=== PATIENT | male | born 1950 | race Caucasian/White ===

== ENCOUNTER 2023-01-30 05:06 | Emergency (ER) | payer MEDICARE ==
[2023-01-30] VITALS (9 sets, daily range): BP systolic 143–171; BP diastolic 66–88
[~2023-01-30] VITALS: Ht 165.1 cm; Wt 83.0 kg
[2023-01-30 05:37] LABS: BASO% 0.4 % (0-3); EOS% 4.9 % (0-8); HEMATOCRIT 39.5 % (39.0-50.0); HEMOGLOBIN 12.8 g/dl (14.0-18.0); IMMATURE GRANULOCYTES 0.3 % (0.0-5.0); LYMPH% 25.1 % (15-41); MEAN CELL VOLUME 92.1 fL CALC (80.0-100.0); MEAN CORPUSCULAR HGB 29.8 pG CALC (26.0-32.0); MEAN CORPUSCULAR HGB CONC 32.4 g/dL CAL (32.0-36.0); MONO% 9.7 % (2-13); NEUT# 4.03 thou/uL (1.82-7.42); NEUT% 59.6 % (42-76); RED BLOOD COUNT 4.29 mill/uL (4.70-6.10); RED CELL DISTRI WIDTH 12.7 % (11.5-15.5)
[2023-01-30] MEDS ORDERED: TOPROL XL25 MG PO (05:41)
[2023-01-30] MEDS ORDERED: AMOXICILLIN500 MG PO (05:41)
[2023-01-30] MEDS ORDERED: OMEPRAZOLE DR40 MG PO (05:42)
[2023-01-30] MEDS ORDERED: TOPIRAMATE25 MG PO (05:43)
[2023-01-30] MEDS ORDERED: CELEBREX200 MG PO (05:43)
[2023-01-30] MEDS ORDERED: ATORVASTATIN CA20 MG PO (05:44)
[2023-01-30] MEDS ORDERED: LISINOPRIL20 M1 PO (05:44)
[2023-01-30] MEDS ORDERED: ASPIRIN81 MG PO (05:45)
[2023-01-30] MEDS ORDERED: ZINC100 M1 PO (05:45)
[2023-01-30] MEDS ORDERED: VITAMIN D2 PO ×2 (05:47→05:48)
[2023-01-30] MEDS ORDERED: OMEGA 31000 MG PO (05:49)
[2023-01-30] MEDS ORDERED: VITAMIN C1000 MG PO ×2 (05:50→05:51)
[2023-01-30 05:53] LABS: ALBUMIN 4.1 g/dL (3.2-5.0); ALKALINE PHOSPHATASE 116 u/l (38-126); ANION GAP 8 (6-22 (CALC)); BILIRUBIN, TOTAL 0.2 mg/dL (0.2-1.3); BUN 16 mg/dL (8-23); BUN/CREATININE RATIO 16 (12-20 (CALC)); CARBON DIOXIDE 26 mmol/l (22-30); CHLORIDE 110 mmol/l (95-108); GFR FOR AFR.AMER. > 60 ML/MIN (>=60 (CALC)); GFR OTHER RACES > 60 ML/MIN (>=60 (CALC)); POTASSIUM 3.7 mmol/l (3.5-5.1); SGOT/AST 26 u/l (19-48); SODIUM 139 mmol/l (137-146); TOTAL PROTEIN 7.1 g/dL (6.3-8.2)
[2023-01-30] MEDS ORDERED: CO-Q 101 CAP PO (05:53)
[2023-01-30] MEDS ORDERED: SELENIUM200 MC1 PO (05:54)
[2023-01-30] MEDS ORDERED: [UNRECOGNIZED DRUG - OTHER] PO (05:56)
[2023-01-30] MEDS ORDERED: TURMERIC CURCU500 MG PO (05:56)
[2023-01-30] MEDS ORDERED: VITAMIN E400 UNIT PO (05:57)
[2023-01-30] MEDS ORDERED: ALPHA LIPOIC100 MG PO (05:58)
[2023-01-30 06:42] LABS: URINE BILIRUBIN - DIPSTICK NEGATIVE (NEGATIVE); URINE BLOOD DIPSTICK NEGATIVE (NEGATIVE); URINE COLOR YELLOW; URINE GLUCOSE - DIPSTICK NEGATIVE (NEGATIVE); URINE KETONE NEGATIVE (NEGATIVE); URINE LEUK ESTERASE NEGATIVE (NEGATIVE); URINE NITRITE - DIPSTICK NEGATIVE (Negative); URINE PROTEIN - DIPSTICK NEGATIVE (NEG-TRACE); URINE UROBILINOGEN - DIPSTICK 0.2 E.U./dL (0.2)
== END 2023-01-30 08:50 | disposition home or self-care (01) ==
LOC: ED 05:06
PROVIDERS: Emergency Medicine
DX: R51.9 Headache, unspecified (principal); R07.9 Chest pain, unspecified; I10 Essential (primary) hypertension

== ENCOUNTER 2024-12-30 08:26 | Day surgery (SDC) | payer MEDICAID ==
[~2024-12-30] VITALS: Ht 162.6 cm; Wt 82.1 kg
[~2024-12-30 08:26] MED LIST: ALPHA LIPOIC100 MG PO; AMOXICILLIN500 MG PO; ASPIRIN81 MG PO; ATORVASTATIN CA20 MG PO; CELEBREX200 MG PO; CO-Q 101 CAP PO; COQ10100 MG PO; HYDROCHLOROT25 MG PO; LISINOPRIL20 M1 PO; MAGNESIUM250 M1 PO; OMEGA 31000 MG PO; OMEPRAZOLE DR40 MG PO; PROVENTIL0.083 % IN; SELENIUM200 MC1 PO; SILDENAFIL20 MG PO; TOPIRAMATE25 MG PO; TOPROL XL25 MG PO; TRAMADOL HYDROC50 M1 PO; TURMERIC CURCU500 MG PO; VITAMIN C1000 MG PO; VITAMIN D2 PO; VITAMIN E400 UNIT PO; ZINC100 M1 PO; [UNRECOGNIZED DRUG - OTHER] PO
[2024-12-30] MEDS ORDERED: FAMOTIDINE 10MG/ML 2ML SDV IV ONE (08:40)
[2024-12-30] MEDS ORDERED: SODIUM CHLORIDE 0.9% 1,000 ML IV ONE (08:40)
[2024-12-30 11:04] VITALS: BP 114/74
[2024-12-30] MEDS ORDERED: LIDOCAINE HCL 2% 2ML SDV IV ONE (15:53)
[2024-12-30] MEDS ORDERED: PROPOFOL 200 MG/20 ML VIAL IV ONE (15:53)
== END 2024-12-30 10:30 | disposition home or self-care (01) ==
LOC: ENDO 08:26 → ORM 10:55 → ENDO 10:55 → ORM 12:15
PROVIDERS: ATTEND Surgery
PROC: 0DJD8ZZ Inspection of Lower Intestinal Tract, Via Natural or Artificial Opening Endoscopic (ICD-10-PCS; principal; 2024-12-30)
PROC: 0DB48ZX Excision of Esophagogastric Junction, Via Natural or Artificial Opening Endoscopic, Diagnostic (ICD-10-PCS; 2024-12-30)
DX: D64.9 Anemia, unspecified (principal); K57.30 Diverticulosis of large intestine without perforation or abscess without bleeding; K64.8 Other hemorrhoids; K21.9 Gastro-esophageal reflux disease without esophagitis; K44.9 Diaphragmatic hernia without obstruction or gangrene; I10 Essential (primary) hypertension; E78.00 Pure hypercholesterolemia, unspecified